=== PATIENT | female | born 1965 | race African-American/Black ===

== ENCOUNTER 2019-05-08 12:26 | Emergency (ER) | payer MEDICAID, MEDICARE ==
[~2019-05-08] VITALS: Ht 157.5 cm; Wt 150.0 kg
[~2019-05-08 12:26] MED LIST: ALBU6.7H INH; FURO20TA4 PO; LOSARTAN PO; METO-396 PO
[2019-05-08 15:20] VITALS: BP 170/90
== END 2019-05-08 16:23 | disposition left against medical advice (07) ==
LOC: ER 12:26
DX: R09.81 Nasal congestion (principal); R05 Cough; Z53.21 Procedure and treatment not carried out due to patient leaving prior to being seen by health care provider